=== PATIENT | male | born 1935 | race Caucasian/White ===

== ENCOUNTER 2021-08-27 18:08 | Emergency (ER) | payer MEDICARE, BC ==
[~2021-08-27] VITALS: Ht 167.6 cm; Wt 66.4 kg
[2021-08-27 18:09] VITALS: TEMP 97.1
[2021-08-27 18:50] LABS: BASO # 0.1 K/mm3 (0.0-0.2); EOS # 0.3 K/mm3 (0.0-0.7); EOS % 5.4 % (0.0-4.0); GRAN # 2.6 K/mm3 (1.4-6.5); GRAN % 44.1 % (42.2-75.2); HEMATOCRIT 39.6 % (42.0-52.0); HEMOGLOBIN 13.5 g/dl (13.5-18.0); MEAN CELL VOLUME 88 fl (80.0-100.0); MEAN CORPUSCULAR HEMOGLOBIN 30 pg (27-31); MEAN CORPUSCULAR HGB CONC 34 g/dl (33.0-37.0); MEAN PLATELET VOLUME 8.6 fl (7.4-10.4); MONO # 0.9 K/mm3 (0.1-0.6); MONO % 15.2 % (1.7-9.3); PLATELET COUNT 193 K/mm3 (130-400); RED BLOOD COUNT 4.51 M/mm3 (4.20-5.60); REDCELL DISTRIBUTION WIDTH-CV 13.1 % (11.5-14.5)
[2021-08-27 18:56] LABS: INR 1.2 (0.8-3.0); PROTHROMBIN TIME 14.2 SECONDS (9.7-12.8)
[2021-08-27 19:08] LABS: ALBUMIN 3.5 gm/dL (3.4-4.8); BILIRUBIN,TOTAL 1.6 mg/dL (0.2-1.2); CALCIUM 9.2 mg/dL (8.4-10.2); CREATININE, serum 0.75 mg/dL (0.72-1.25); POTASSIUM 4.1 mmol/L (3.5-4.5); TOTAL PROTEIN 6.6 gm/dL (6.2-8.1)
[2021-08-27] MEDS ORDERED: ASPIRIN 81M81 MG/TA2 PO (19:12)
[2021-08-27] MEDS ORDERED: ELIQUIS 5MG PO (19:45)
[2021-08-27 21:14] VITALS: BP 143/99; PULSE 105
== END 2021-08-27 21:23 | disposition home or self-care (01) ==
LOC: COL.ER 18:08
PROVIDERS: Physician Assistant
DX: S62.521A Displaced fracture of distal phalanx of right thumb, initial encounter for closed fracture (principal); S01.81XA Laceration without foreign body of other part of head, initial encounter; I48.91 Unspecified atrial fibrillation; F17.200 Nicotine dependence, unspecified, uncomplicated; Z23 Encounter for immunization; W10.8XXA Fall (on) (from) other stairs and steps, initial encounter

== ENCOUNTER 2021-12-09 21:13 | Emergency (ER) | payer MEDICARE, BC ==
[~2021-12-09] VITALS: Ht 165.1 cm; Wt 68.2 kg
[~2021-12-09 21:13] MED LIST: ASPIRIN 81M81 MG/TA2 PO; ELIQUIS 5MG PO
[2021-12-09 23:27] VITALS: BP 169/98; PULSE 76
== END 2021-12-09 23:28 | disposition home or self-care (01) ==
LOC: COL.ER 21:13
DX: R04.0 Epistaxis (principal)